=== PATIENT | male | born 1990 | race Caucasian/White ===

== ENCOUNTER 2018-04-30 21:32 | Emergency (ER) | payer SELFPAY ==
[2018-04-30 21:56] VITALS: BP 153/100
--- NOTE | 2018-04-30 22:01 | ED ---
Throat Pain/Nasal Congestion - HPI Summary HPI Summary: 27 yr old male with the complaint of left side neck mass for a year, and now pain and swelling to left side of neck that has worsened. He states over the past 5 days the left side of neck has gotten larger, and more swollen and red. It hurts to turn his head. No trouble swallowing, no drooling. - History of Current Complaint Chief Complaint: UCSkin Time Seen by Provider: 04/30/18 21:50 - Allergies/Home Medications Allergies/Adverse Reactions: Allergies Allergy/AdvReac Type Severity Reaction Status Date / Time No Known Allergies Allergy Verified 08/06/15 16:30 Home Medications: Home Medications NK [No Home Medications Reported] 04/30/18 [History Confirmed 04/30/18] PMH/Surg Hx/FS Hx/Imm Hx - Surgical History Surgery Procedure, Year, and Place: CYST REMOVED ON ARM Infectious Disease History: No Infectious Disease History: Denies: Traveled Outside the [place] in Last 30 Days - Family History Known Family History: Positive: None - Social History Occupation: Employed Full-time Lives: With Family Alcohol Use: Rare Substance Use Type: Reports: None Smoking Status (MU): Heavy Every Day Tobacco Smoker Type: Cigarettes Have You Smoked in the Last Year: Yes Review of Systems Constitutional: Negative Positive: Other - mass left side of neck that is larger and now painful and red. All Other Systems Reviewed And Are Negative: Yes Physical Exam Triage Information Reviewed: Yes Vital Signs On Initial Exam: Initial Vitals Temp Pulse Resp BP Pulse Ox 99.1 F 88 18 153/100 98 04/30/18 21:50 04/30/18 21:50 04/30/18 21:50 04/30/18 21:50 04/30/18 21:50 Vital Signs Reviewed: Yes Appearance: Positive: Well-Appearing, No Pain Distress Skin: Positive: Warm Head/Face: Positive: Normal Head/Face Inspection Neck: Positive: Other: - there is a 2 inch diameter area of induration along the left sternocleidomastoid muscle with redness, and tenderness. STS present down into the anterior neck on left side as well. Respiratory/Lung Sounds: Positive: Clear to Auscultation, Breath Sounds Present Cardiovascular: Positive: RRR. Negative: Murmur Abdomen Description: Negative: Distended Musculoskeletal: Positive: Strength/ROM Intact Neurological: Positive: Sensory/Motor Intact, Alert, Oriented to Person Place, Time, CN Intact II-III Psychiatric: Positive: Normal - Angle Coma Scale Best Eye Response: 4 - Spontaneous Best Motor Response: 6 - Obeys Commands Best Verbal Response: 5 - Oriented Coma Scale Total: 15 Diagnostics - Vital Signs Vital Signs Temp Pulse Resp BP Pulse Ox 04/30/18 21:50 99.1 F 88 18 153/100 98 - Laboratory Lab Statement: Any lab studies that have been ordered have been reviewed, and results considered in the medical decision making process. EENT Course/Dx - Course Course Of Treatment: 27 yr old with enlarging neck mass and some infectious component now. Airway is fine. He is going to the ER in [place] for further evaluation, imaging, labs, and possible ENT consultation. - Diagnoses Provider Diagnoses: Palpable mass of neck, Hypertension Discharge - Sign-Out/Discharge Documenting (check all that apply): Patient Departure All imaging exams completed and their final reports reviewed: No Studies - Discharge Plan Condition: Good Disposition: HOME-RECOMMEND TO ED Patient Education Materials: Abscess (ED), Hypertension (ED) Referrals: Román Bermudez MD [Primary Care Provider] - Additional Instructions: You need to go to the ER now for further evaluation and work up for your abscess. Do not delay going. - Billing Disposition and Condition Condition: GOOD Disposition: Home-Recommend to ED
== END 2018-04-30 22:04 | disposition home health service (06) ==
LOC: UCCORT 21:32
DX: R22.1 Localized swelling, mass and lump, neck (principal); I10 Essential (primary) hypertension; F17.210 Nicotine dependence, cigarettes, uncomplicated
CPT/HCPCS: 99212; G0463

== ENCOUNTER 2019-09-28 12:43 | Emergency (ER) | payer SELFPAY ==
--- NOTE | 2019-09-28 13:30 | ED ---
Substance Abuse/Use - HPI Summary HPI Summary: 29 year old M arriving via private car to [facility] requesting detox. Hx heroin use. He snorts heroin. He admits to using heroin this morning. He used heroin 4- 5 days days ago before today. Also took Xanax which he usually takes to help him sleep. Denies other PMHx. Denies FHx. No surgical hx. Current smoker. - History Of Current Complaint Chief Complaint: EDDetoxRequest Stated Complaint: POSSIBLE OVERDOSE Time Seen by Provider: 09/28/19 13:00 Hx Obtained From: Patient Severity Currently: None Aggravating Factor(s): Nothing Alleviating Factor(s): Nothing - Allergies/Home Medications Allergies/Adverse Reactions: Allergies Allergy/AdvReac Type Severity Reaction Status Date / Time No Known Allergies Allergy Verified 09/28/19 12:59 Home Medications: Home Medications NK [No Home Medications Reported] 04/30/18 [History Confirmed 04/30/18] PMH/Surg Hx/FS Hx/Imm Hx Endocrine/Hematology History: Denies: Hx Diabetes Cardiovascular History: Denies: Hx Hypertension Psychiatric History: Reports: Hx Substance Abuse - Surgical History Surgery Procedure, Year, and Place: CYST REMOVED ON ARM Infectious Disease History: No Infectious Disease History: Denies: Traveled Outside the [place] in Last 30 Days - Family History Known Family History: Negative: Cardiac Disease, Hypertension, Diabetes - Social History Alcohol Use: Rare Hx Substance Use: Yes Substance Use Type: Reports: Heroin Substance Use Comment - Amount & Last Used: Xanax, THC Hx Tobacco Use: Yes Smoking Status (MU): Heavy Every Day Tobacco Smoker Type: Cigarettes Have You Smoked in the Last Year: Yes Review of Systems Negative: Fever Positive: Other - heroin use this morning All Other Systems Reviewed And Are Negative: Yes Physical Exam - Summary Physical Exam Summary: General: Well appearing, no distress HEENT: PERRL Cardiovascular: Skin is well perfused, he is tachycardic Pulmonary: No respiratory distress, no tachypnea Abdomen: Non-distended Skin: Warm, pink, dry MSK: No edema Psych: Normal affect Neuro: A&Ox3 Triage Information Reviewed: Yes Vital Signs On Initial Exam: Initial Vitals Temp Pulse Resp BP Pulse Ox 99.5 F 117 16 150/111 95 09/28/19 12:56 09/28/19 12:56 09/28/19 12:56 09/28/19 12:56 09/28/19 12:56 Vital Signs Reviewed: Yes Procedures - Sedation Patient Received Moderate/Deep Sedation with Procedure: No Diagnostics - Vital Signs Vital Signs Temp Pulse Resp BP Pulse Ox 09/28/19 12:56 99.5 F 117 16 150/111 95 - Laboratory Lab Statement: Any lab studies that have been ordered have been reviewed, and results considered in the medical decision making process. Course/Dx - Course Course Of Treatment: 29 -year-old male history of opiate use presenting for rehabilitation. - Patient has no signs of withdrawal at this time, tachycardia self resolved. Patient given instructions for follow-up at [facility] and [facility]. - Diagnoses Provider Diagnoses: Opioid use Discharge ED - Sign-Out/Discharge Documenting (check all that apply): Patient Departure - Discharge Plan Condition: Stable Disposition: HOME Patient Education Materials: Polysubstance Abuse (ED) Referrals: [facility] - Residential Facility [Outside] [facility],. [e-Tag, APPLICATION, OTHER] - Additional Instructions: You were seen in the emergency department for opioid use. Please try and get touch with [facility] or [facility] as these places will have outpatient resources for drug rehabilitation Please follow up with your primary care doctor in next 2-3 days and return to emergency department for worsening or concerning symptoms. It was a pleasure taking care of you today. - Billing Disposition and Condition Condition: STABLE Disposition: Home - Attestation Statements Document Initiated by Abdirashid: Yes Documenting Scribe: Yuki Klein Provider For Whom Abdirashid is Documenting (Include Credential): Nicko Lo MD Scribe Attestation: I, Yuki Klein, scribed for Nicko Lo MD on 09/28/19 at 1423. Scribe Documentation Reviewed: Yes Provider Attestation: The documentation as recorded by the Yuki weir accurately reflects the service I personally performed and the decisions made by me, Nicko Lo MD Status of Scribe Document: Viewed
[2019-09-28 14:02] VITALS: BP 150/108
== END 2019-09-28 14:01 | disposition home or self-care (01) ==
LOC: ED 12:43
DX: F11.90 Opioid use, unspecified, uncomplicated (principal); F17.210 Nicotine dependence, cigarettes, uncomplicated
CPT/HCPCS: 99281

== ENCOUNTER 2019-09-29 19:59 | Emergency (ER) | payer SELFPAY ==
--- NOTE | 2019-09-29 20:07 | ED ---
Substance Abuse/Use - HPI Summary HPI Summary: 29 year old M presenting to [facility] via EMS with a chief complaint of altered mental status since using 8 mg of Suboxone today. Symptoms aggravated by nothing. Symptoms alleviated by nothing. Per EMS the patient snorted heroin 20 hours ago. He was seen here yesterday. The patient's brother called EMS. Medication list reviewed. Allergy list reviewed. THE HPI IS LIMITED DUE TO LEVEL 5 CAVEAT - Altered mental status. Home Medications Medication Instructions Recorded Confirmed Type NK [No Home Medications Reported] 04/30/18 04/30/18 History - History Of Current Complaint Stated Complaint: DROWZZY PER EMS Hx Obtained From: Patient, EMS Onset/Duration of Drug/ETOH Abuse: Hours Ingestion History: Type/Name Of Drug - Suboxone, heroin Overdose Characteristics: Oral, Inhalation Aggravating Factor(s): Nothing Alleviating Factor(s): Nothing Associated Signs And Symptoms: Altered Mental Status - Allergies/Home Medications Allergies/Adverse Reactions: Allergies Allergy/AdvReac Type Severity Reaction Status Date / Time No Known Allergies Allergy Verified 09/29/19 20:13 Home Medications: Home Medications NK [No Home Medications Reported] 04/30/18 [History Confirmed 09/29/19] PMH/Surg Hx/FS Hx/Imm Hx Endocrine/Hematology History: Denies: Hx Diabetes Cardiovascular History: Denies: Hx Hypertension Psychiatric History: Reports: Hx Substance Abuse - Surgical History Surgery Procedure, Year, and Place: CYST REMOVED ON ARM - Family History Known Family History: Negative: Cardiac Disease, Hypertension, Diabetes - Social History Alcohol Use: Rare Hx Substance Use: Yes Substance Use Type: Reports: Heroin, Other - Suboxone Substance Use Comment - Amount & Last Used: Xanax, THC Hx Tobacco Use: Yes Smoking Status (MU): Heavy Every Day Tobacco Smoker Type: Cigarettes Have You Smoked in the Last Year: Yes - Additional Comments History Additional Comments: LIMITED DUE TO LEVEL 5 CAVEAT - Altered mental status. Review of Systems - ROS Summary Review of Systems Summary: THE ROS IS LIMITED DUE TO LEVEL 5 CAVEAT - Altered mental status. Neurological/Mental Status: Other - Altered mental status All Other Systems Reviewed And Are Negative: No Physical Exam - Summary Physical Exam Summary: LIMITED DUE TO LEVEL 5 CAVEAT - Altered mental status. Constitutional: Well-developed, Well-nourished, Alert. (-) Distressed, yawning frequently, following commands. Skin: Warm, Dry HENT: Normocephalic; Atraumatic Eyes: Conjunctiva normal, pupils 6 mm and reactive. Neck: Musculoskeletal ROM normal neck. (-) JVD, (-) Stridor, (-) Tracheal deviation Cardio: Rhythm regular, rate normal, Heart sounds normal; Intact distal pulses; Radial pulses are 2+ and symmetric. (-) Murmur Pulmonary/Chest wall: Effort normal. (-) Respiratory distress, (-) Wheezes, (-) Rales Abd: Soft, (-) tenderness, (-) Distension, (-) Guarding, (-) Rebound Musculoskeletal: (-) Edema Lymph: (-) Cervical adenopathy Neuro: Somnolent but answering questions, Oriented x3 Psych: Mood and affect Normal Triage Information Reviewed: Yes Vital Signs Reviewed: Yes Procedures - Sedation Patient Received Moderate/Deep Sedation with Procedure: No Diagnostics - Laboratory Result Diagrams: 09/29/19 20:19 09/29/19 20:19 Lab Statement: Any lab studies that have been ordered have been reviewed, and results considered in the medical decision making process. - EKG 20:24 Cardiac Rate: NL - 99 BPM EKG Rhythm: Sinus Rhythm Summary of EKG Findings: No QTC prolongation. ED physician has reviewed and interpreted this EKG. Re-Evaluation - Re-Evaluation First Eval Re-Evaluation Time: 20:57 Change: Improved Comment: The patient is feeling slightly better, still somewhat somnolent but still arousable. Course/Dx - Course Course Of Treatment: Patient is here after overdosing on Suboxone. Patient was spontaneously breathing upon arrival in answering some questions periodically. Patient had a toxicology workup performed which was grossly unremarkable. Patient was signed out to Dr. Gomez pending sobriety. - Diagnoses Provider Diagnoses: Opiate overdose, Somnolence Discharge ED - Sign-Out/Discharge Documenting (check all that apply): Sign-Out Patient Signing out patient TO: Mark Gomez - Pending sobriety and disposition. - Discharge Plan Condition: Stable Disposition: HOME Patient Education Materials: Narcotic Safety (ED), Opioid Use Disorder (ED) Referrals: [facility],. [Z.BUSINESS, APPLICATION, OTHER] - [facility] [Outside] [facility] [Outside] - 3 Days Additional Instructions: Follow-up with your PCP in 1-3 days. Use these resources to obtain sobriety. You can also look up Narcotics Anonymous meetings. - Billing Disposition and Condition Condition: STABLE Disposition: Home - Attestation Statements Document Initiated by Abdirashid: Yes Documenting Scribe: Freda Go Provider For Whom Abdirashid is Documenting (Include Credential): Sonu Matthew MD Scribe Attestation: Freda Crabtree, scribed for Sonu Matthew MD on 10/01/19 at 1126. Scribe Documentation Reviewed: Yes Provider Attestation: The documentation as recorded by the Freda weir accurately reflects the service I personally performed and the decisions made by me, Sonu Matthew MD Status of Scribe Document: Viewed
[2019-09-29 20:27] LABS: ABS Basophils 0.1 10^3/ul (0-0.2); ABS Lymphocytes 1.4 10^3/ul (1.0-4.8); ABS Monocytes 0.4 10^3/ul (0-0.8); ABS Neutrophils 10.6 10^3/ul (1.5-7.7); Eosinophil % 0.2 %; Hematocrit 48 % (42-52); Hemoglobin 16.5 g/dL (14.0-18.0); Lymphocyte % 10.9 %; Mean Corpuscular HGB Conc 34 g/dL (31-36); Mean Corpuscular Hemoglobin 29 pg (27-31); Mean Corpuscular Volume 83 fL (80-94); Mean Platelet Volume 7.9 fL (7.4-10.4); Nucleated Red Blood Cells % 0.1; Platelet Count 324 10^3/uL (150-450); Red Blood Count 5.77 10^6 /uL (4.18-5.48); Red Cell Distribution Width 13 % (10-15); White Blood Count 12.6 10^3/uL (3.5-10.8)
[2019-09-29 20:45] LABS: ALT 46 U/L (7-52); AST 21 U/L (13-39); Albumin 4.8 g/dL (3.2-5.2); Albumin/Globulin Ratio 1.7 (1-3); Alkaline Phosphatase 95 U/L (34-104); Anion Gap 9 mmol/L (2-11); Blood Urea Nitrogen 13 mg/dL (6-24); CO2 Carbon Dioxide 28 mmol/L (22-32); Calcium 10.4 mg/dL (8.6-10.3); Chloride 103 mmol/L (101-111); EGFR African American 117.1 (>60); EGFR Non-African American 96.7 (>60); Globulin 2.8 g/dL (2-4); Glucose 94 mg/dL (70-100); Potassium 4.4 mmol/L (3.5-5.0); Sodium 140 mmol/L (135-145); Total Protein 7.6 g/dL (6.4-8.9)
[2019-09-29 20:57] LABS: Acetaminophen < 15 mcg/mL; Alcohol < 10 mg/dL (<10); Salicylate < 2.50 mg/dL (<30)
--- NOTE | 2019-09-29 22:14 | ED ---
Progress - Progress Note Progress Note: The patient is a sign-out from Dr. Sonu Matthew MD, to Dr. Mark Gomez MD, at change of shift at 2200 on 09/29/2019, pending sobriety and discharge. Patient is awake, alert, and oriented. He is ambulating well. He is safe for discharge. Re-Evaluation - Re-Evaluation First Eval Re-Evaluation Time: 03:55 Change: Improved Comment: Patient is awake, alert, oriented, ambulating Course/Dx - Course Course Of Treatment: The patient was signed out from Dr. Matthew at shift change. Patient is a 29 year-old male pending sobriety from heroin. Patient is awake, alert, and oriented. He is ambulating in the ED. The patient is safe for discharge. Patient will follow up with PCP in 2-3 days. - Diagnoses Provider Diagnoses: Opiate overdose, Somnolence Discharge ED - Sign-Out/Discharge Documenting (check all that apply): Patient Departure - Patient will be discharged home., Receiving Sign-Out Receiving patient FROM: Sonu Matthew - Patient is a sign-out from Dr. Sonu Matthew MD, at 2200 on 09/29/2019, pending sobriety and discharge. - Discharge Plan Condition: Stable Disposition: HOME Patient Education Materials: Narcotic Safety (ED), Opioid Use Disorder (ED) Referrals: [facility] [Outside] [facility] [Outside] - 3 Days [facility],. [Z.BUSINESS, APPLICATION, OTHER] - Additional Instructions: Follow-up with your PCP in 1-3 days. Use these resources to obtain sobriety. You can also look up Narcotics Anonymous meetings. - Billing Disposition and Condition Condition: STABLE Disposition: Home - Attestation Statements Document Initiated by Majoibe: Yes Documenting Scribe: Meri Islas Provider For Whom Abdirashid is Documenting (Include Credential): Mark Gomez MD Scribe Attestation: Meri Crabtree, scribed for Mark Gomez MD on 09/30/19 at 0659. Scribe Documentation Reviewed: Yes Provider Attestation: The documentation as recorded by the Meri weir accurately reflects the service I personally performed and the decisions made by me, Mark Gomez MD Status of Scribe Document: Viewed Procedures - Sedation Patient Received Moderate/Deep Sedation with Procedure: No
[2019-09-30] MEDS ORDERED: LORazepam TAB(*) 1 MG PO ONE (02:18)
[2019-09-30] MEDS ORDERED: Ondansetron ODT TAB* 4 MG SL PRN (02:18)
[2019-09-30 04:53] VITALS: BP 154/88
--- NOTE | 2019-09-30 07:55 | CONS ---
CC: Hawa Arias MD * MEDICINE CONSULTATION REPORT: DATE OF CONSULT: 09/30/19 - EMERGENCY DEPT PROVIDER: Nader Chong NP. OUTPATIENT PROVIDER: Hawa Arias MD. REASON FOR CONSULT: Addiction medicine consult for opioid use disorder. HISTORY OF PRESENT ILLNESS: Román Hidalgo is a 29-year-old male who was brought in by ambulance on 09/29/19 with concern for altered mental status after using buprenorphine/naloxone product, Suboxone. Per the ER notes, he presented with altered mental status and was unable to give much of a history. When I had seen him this morning several hours later, he is alert and oriented and able to provide more of a history. He reports a history of intermittent opioid use disorder. Denies any history of injection but it was essentially snorting heroin. Usage ranged from use of a gram to 1-1/2 bundles a day. Earlier this week, he had bought heroin from a relative and used the entire supply in 1 day. He was caught by his family and had concern for opioid use disorder. His family took him to the ER on Thursday and they were discharged and referred to outpatient services. Román reports buying supply of Suboxone off the street with the goal of trying to get himself on to Suboxone. He states he had a 12 mg strip and took three-quarter of a strip and then states that he immediately felt bad endorsing nausea, tremors, restlessness, and felt like he was "on a bad trip." He also endorsed using Xanax, which he bought off the street, which he was not sure if it was true Xanax as well as 180 mg of THC. He has used Suboxone to help come down off of opioid use in the past but has never been on maintenance therapy. He is unsure of what dose would be helpful for him as a maintenance medication. He denies any history of overdose stating that he has never injected and he only uses opioids via snorting. He has a girlfriend who also has a history of use disorder. There is no naloxone in the home. He states that he was laid off a few months ago. He does have active Medicaid. His phone and home situation is tenuous at this point in time due to lack of income, but he does have support from family members. He states that he could have access to computer and phone if needed and his family members would help him out. PAST MEDICAL HISTORY: None known other than opioid use. HOME MEDICATIONS: None reported. ALLERGIES: No known allergies. SOCIAL HISTORY: He is a current every day smoker. Reports street drug use, which includes heroin which he snorts as well as use of street Xanax and THC. He does have a partner who is currently in [place]. He does have familial support. He names his mother and father as the surrogate decision makers in the event of an emergency. PHYSICAL EXAM: General: Well-developed, well-nourished 29-year-old male, seen lying in ED stretcher, in no acute distress. He is pleasant, conversive. HEENT : Head is atraumatic normocephalic. Pupils are dilated but reactive to light. Neck with full range of motion. Cardiac: Regular rate and rhythm. Tachycardic in the 100s to 110s. Lungs: Clear to auscultation. Musculoskeletal: Active range of motion times all 4 extremities. Neuro: No focal deficits. Speech is clear. Alert and oriented x4. He has good recall. ASSESSMENT AND PLAN: This is a 29-year-old male seen in the ER with concern for opioid use disorder and in search of maintenance therapy with buprenorphine products. I did discuss with him that he needs to have guidance in regards to inducing on Suboxone and he likely took too much medication in 1 sitting. I do also suspect that there is polysubstance use that was contributing to his presentation here in the ER with altered mental status as his previous heroin use was almost 1-1/2 to 2 days prior and the altered mental status is not consistent with precipitated withdrawal. He is actively endorsing nausea and reports feeling restless legs, bone aches. We discussed the symptoms of withdrawal. He has not tried gabapentin, and we discussed using this for restless legs and taking up to 2 to 3 pills in the evening to help with sleep. He will also be prescribed Zofran. I have also started him on Suboxone and printed off the home induction information for him to use at home starting with 4 mg strips and cutting them into fourth and taking 1 at a time and waiting to see if he has any reaction. He will continue to take the medication and go up to 16 mg to start. He states that he does have a phone call this morning with [facility] to discuss induction in telemedicine. He should keep that phone call in light of the recent aguilar virus instructions and recommendations to not have patients in the office. We will utilize telemedicine for this patient. I have met him and we will start his Suboxone prescription, and he will complete his intake and induction in the future with [facility] as able. I do note that his COWS score at this time is 13, which indicates moderate withdrawal and I did explain to him that he is in a good place to continue induction, but should do so at a slow rate in order prevent further side effects. 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 TIME SPENT: Time spent on this consultation was approximately 45 minutes. NADER CHONG, ORNAMENTER HAND [id number]/CPS #: [id number] SEFER[place]
== END 2019-09-30 04:52 | disposition home or self-care (01) ==
LOC: ED 19:59
DX: T40.601A Poisoning by unspecified narcotics, accidental (unintentional), initial encounter (principal); R40.0 Somnolence; Y92.9 Unspecified place or not applicable; F17.210 Nicotine dependence, cigarettes, uncomplicated
CPT/HCPCS: 36415; 80053; 80320; 80329; 85025; 93005; 99283; A9270-GY; G0480